=== PATIENT | male | born 1980 | race Caucasian/White ===

== ENCOUNTER 2017-02-22 07:04 | Day surgery (SDC) | payer BC ==
[~2017-02-22 07:04] MED LIST: Dexamethasone 4 MG/ML 5 ML MDV ONE; Lactated Ringers 1,000 ML IV SCH; Lidocaine 1%/Sod Bicarbonate in NS 8.4% 1 ML Syringe IV PRN; Midazolam 1 MG/ML 2 ML SDV ONE; Ondansetron 4 MG/2 ML SDV ONE; Propofol 200 MG/20 ML SDV ONE; Rocuronium 50 MG/5 ML Vial ONE; Sodium Chloride 0.9% 10 ML ONE; Sodium Chloride 0.9% 10 ML Syringe FLUSH PRN; ceFAZolin 1 GM Vial ONE; fentaNYL 250 MCG/5 ML SDV ONE
[2017-02-22] MEDS ORDERED: Sodium Chloride 0.9% 50 ML SDV ONE ×2 (07:23→08:47)
[2017-02-22] MEDS ORDERED: Lidocaine 1% with EPINEPHrine 1:100,000 20 ML MDV ONE (07:23)
[2017-02-22] MEDS ORDERED: Iopamidol 612 MG/ML 50 ML SDV ONE (07:23)
[2017-02-22] MEDS ORDERED: Bupivacaine 0.5%/EPINEPHrine 1:200,000 50 ML MDV ONE (07:23)
--- NOTE | 2017-02-22 07:24 | PCM.PREANE ---
Preanesthetic Assessment - Anesthesia/Transfusion/Family Hx Anesthesia History: Prior Anesthesia Without Reaction Type of Anesthesia Reaction: Unknown Family History of Anesthesia Reaction: No Transfusion History: Unknown Type of Transfusion Reactions: Reports: Unknown - Review of Systems General: No Symptoms Pulmonary: No Symptoms Cardiovascular: No Symptoms, Other (increased cholesterol) Gastrointestinal: No symptoms Neurological: No Symptoms Other: 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 - Physical Assessment NPO Status Date: 02/21/17 NPO Status Time: 22:00 Pulse: 72 O2 Sat by Pulse Oximetry: 97 Respiratory Rate: 16 Blood Pressure: 117/68 Temperature: 37.0 C Height: 1.88 m Weight: 151.182 kg ASA Class: 2 Mental Status: Alert & Oriented x3 Airway Class: Mallampati = 1 Dentition: Reports: Normal Dentition Thyro-Mental Finger Breadths: 3 Mouth Opening Finger Breadths: 3 ROM/Head Extension: Full Lungs: Clear to auscultation, Normal respiratory effort Cardiovascular: Regular Rate, Regular Rhythm - Allergies Allergies/Adverse Reactions: Allergies Allergy/AdvReac Type Severity Reaction Status Date / Time No Known Allergies Allergy Verified 02/21/17 12:37 - Blood Blood Available: No Product(s) Available: None - Anesthesia Plan Pre-Op Medication Ordered: None - Acknowledgements Anesthesia Type Planned: General Anesthesia Pt an Appropriate Candidate for the Planned Anesthesia: Yes Alternatives and Risks of Anesthesia Discussed w Pt/Guardian: Yes Pt/Guardian Understands and Agrees with Anesthesia Plan: Yes PreAnesthesia Questionnaire HEENT History: 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 Cardiovascular History: Reports: High cholesterol Respiratory History: 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 Gastrointestinal History: Reports: Cholelithiasis, Other (see below) Other Gastrointestinal History: Elevated liver function tests, enlarged liver, gall stones, transaminitis Genitourinary History: 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 History: 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 Musculoskeletal History: Reports: Gout Neurological History: 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 Psychiatric History: 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 Endocrine/Metabolic History: 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 Hematologic History: 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 Immunologic History: 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 Oncologic (Cancer) History: 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 Dermatologic History: 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 - Past Surgical History Head Surgeries/Procedures: 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 HEENT Surgical History: 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 Cardiovascular Surgical History: 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 Respiratory Surgical History: 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 GI Surgical History: 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 Male Surgical History: 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 Endocrine Surgical History: 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 Neurological Surgical History: 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 Musculoskeletal Surgical History: Reports: Other (see below) Other Musculoskeletal Surgeries/Procedures:: Left 5th digit tendon repair, Right knee scope x2 Oncologic Surgical History: 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 Dermatological Surgical History: 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 - SUBSTANCE USE Smoking Status *Q: Former Smoker Second Hand Smoke Exposure: Yes Recreational Drug Use History: No - HOME MEDS Home Medications: Home Meds Multivitamin [Multivitamins] 1 tab PO DAILY 02/08/17 [History] - CURRENT (IN HOUSE) MEDS Current Meds: Current Medications Lactated Ringer's (Ringers, Lactated) 1,000 mls @ 125 mls/hr IV ASDIRECTED AJ Lidocaine/Sodium Bicarbonate (Buffered Lidocaine 1% In Ns 8.4%) 0.25 ml IV ONETIME PRN PRN Reason: Prior to IV Start Sodium Chloride (Saline Flush) 10 ml FLUSH ASDIRECTED PRN PRN Reason: Keep Vein Open Discontinued Medications Cefazolin Sodium (Ancef) Confirm Administered Dose 3 gm .ROUTE .STK-MED ONE Stop: 02/22/17 07:01 Dexamethasone (Dexamethasone) Confirm Administered Dose 20 mg .ROUTE .STK-MED ONE Stop: 02/22/17 07:01 Fentanyl (Sublimaze) Confirm Administered Dose 250 mcg .ROUTE .STK-MED ONE Stop: 02/22/17 07:01 Lactated Ringer's (Ringers, Lactated) 1,000 mls @ 125 mls/hr IV ASDIRECTED AJ Sodium Chloride (Normal Saline) Confirm Administered Dose 10 mls @ as directed .ROUTE .STK-MED ONE Stop: 02/22/17 07:01 Lidocaine/Sodium Bicarbonate (Buffered Lidocaine 1% In Ns 8.4%) 0.25 ml IV ONETIME PRN PRN Reason: Prior to IV Start Midazolam HCl (Versed 1 Mg/Ml) Confirm Administered Dose 2 mg .ROUTE .STK-MED ONE Stop: 02/22/17 07:01 Ondansetron HCl (Zofran) Confirm Administered Dose 4 mg .ROUTE .STK-MED ONE Stop: 02/22/17 07:01 Propofol (Diprivan 20 Ml) Confirm Administered Dose 200 mg .ROUTE .STK-MED ONE Stop: 02/22/17 07:01 Rocuronium Neola (Zemuron) Confirm Administered Dose 50 mg .ROUTE .STK-MED ONE Stop: 04/27/17 07:01 Sodium Chloride (Saline Flush) 10 ml FLUSH ASDIRECTED PRN PRN Reason: Keep Vein Open
[2017-02-22] MEDS ORDERED: Metoclopramide 10 MG/2 ML SDV IVPUSH PRN (07:33)
[2017-02-22] MEDS ORDERED: HYDROmorphone 0.5 MG/0.5 ML Syringe IVPUSH PRN (07:33)
[2017-02-22] MEDS ORDERED: Ondansetron 4 MG/2 ML SDV IVPUSH PRN (07:33)
--- NOTE | 2017-02-22 07:48 | PCM.CONS ---
H&P History of Present Illness - General Date of Service: 02/22/17 - History of Present Illness Initial Comments - Free Text/Narative: Patient is a 37-year-old man who presents today for laparoscopic cholecystectomy with interoperative cholangiogram. He has a history of gallstones with elevated liver enzymes. He has had no changes in his health since he was last seen in clinic. He is having intermittent twinges of upper abdominal pain. - Related Data Allergies/Adverse Reactions: Allergies Allergy/AdvReac Type Severity Reaction Status Date / Time No Known Allergies Allergy Verified 02/21/17 12:37 Home Medications: Home Meds Multivitamin [Multivitamins] 1 tab PO DAILY 02/08/17 [History] Past Medical History HEENT History: 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 Cardiovascular History: Reports: High cholesterol Respiratory History: 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 Gastrointestinal History: Reports: Cholelithiasis, Other (see below) Other Gastrointestinal History: Elevated liver function tests, enlarged liver, gall stones, transaminitis Genitourinary History: 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: 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 Musculoskeletal History: Reports: Gout Neurological History: 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 Psychiatric History: 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 Endocrine/Metabolic History: 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 Hematologic History: 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 Immunologic History: 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 Oncologic (Cancer) History: 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 Dermatologic History: 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 - Past Surgical History Head Surgeries/Procedures: 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 HEENT Surgical History: 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 Cardiovascular Surgical History: 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 Respiratory Surgical History: 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 GI Surgical History: 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 Male Surgical History: 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 Endocrine Surgical History: 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 Neurological Surgical History: 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 Musculoskeletal Surgical History: Reports: Other (see below) Other Musculoskeletal Surgeries/Procedures:: Left 5th digit tendon repair, Right knee scope x2 Oncologic Surgical History: 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 Dermatological Surgical History: 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 Social & Family History - Tobacco Use Smoking Status *Q: Former Smoker Used Tobacco, but Quit: Yes Month Tobacco Last Used: 05/13 Second Hand Smoke Exposure: Yes - Caffeine Use Caffeine Use: 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 - Recreational Drug Use Recreational Drug Use: No Drug Use in Last 12 Months: No H&P Review of Systems - Review of Systems: Review Of Systems: ROS reveals no pertinent complaints other than HPI. Exam - Exam Exam: See Below - Vital Signs Vital Signs: Last Vital Signs Temp 98.6 F 02/22/17 07:30 Pulse 72 02/22/17 07:30 Resp 16 02/22/17 07:30 BP 117/68 02/22/17 07:30 Pulse Ox 97 02/22/17 07:30 Weight: 333 lb 4.8 oz - Exam General: alert, oriented, cooperative Lungs: Clear to auscultation, Normal respiratory effort Cardiovascular: regular rate, regular rhythm Abdomen: soft. No: peritoneal signs, distention Extremities: No: cyanosis Skin: warm, dry, intact Neurological: cranial nerves intact Neuro Extensive - Mental Status: alert, oriented x3, normal mood/affect, normal cognition Consult PN Assessment/Plan Procedures: Procedures KNEE ARTHROSCOPY/SURGERY (12/22/14) MR-STAPH DNA AMP PROBE (12/08/14) SURGICAL PATH GROSS (12/22/14) (1) Gallstones SNOMED Code(s): 528352787 Code(s): K80.20 - CALCULUS OF GALLBLADDER W/O CHOLECYSTITIS W/O OBSTRUCTION Current Visit: Yes (2) Elevated liver enzymes SNOMED Code(s): 580006533, 487727248 Code(s): R74.8 - ABNORMAL LEVELS OF OTHER SERUM ENZYMES Current Visit: Yes Problem List Initiated/Reviewed/Updated: Yes My Orders last 24 hours: My Active Orders 02/22/17 07:30 Cholangiogram In OR [CR] Routine Plan: 37-year-old male with cholelithiasis and history of elevated liver enzymes We will proceed with laparoscopic cholecystectomy with interoperative cholangiogram as planned. The patient and his had no concerns or questions.
[2017-02-22] MEDS ORDERED: Propofol 200 MG/20 ML SDV ONE (08:20)
[2017-02-22] MEDS ORDERED: HYDROmorphone 1 MG/ML Syringe ONE (08:40)
[2017-02-22] MEDS: fentaNYL 100 MCG/2 ML SDV IVPUSH PRN ×2 (09:36→10:27)
--- NOTE | 2017-02-22 09:36 | PCM.POSTAN ---
POST ANESTHESIA ASSESSMENT - MENTAL STATUS Mental Status: alert, oriented - VITAL SIGNS Pulse Rate: 84 SaO2: 100 Resp Rate: 16 Blood Pressure: 151/93 Temperature: 36.2 C - RESPIRATORY Respiratory Status: respiratory rate WNL, airway patent, O2 saturation stable, supplemental oxygen - CARDIOVASCULAR CV Status: pulse rate WNL, blood pressure stable - GASTROINTESTINAL GI Status: no symptoms - PAIN Pain Score: 6 (pain meds given per nurse) - POST OP HYDRATION Hydration Status: adequate & stable
--- NOTE | 2017-02-22 10:00 | PCM.OPNOTE ---
- General Post-Op/Procedure Note Date of Surgery/Procedure: 02/22/17 Operative Procedure(s): Laparoscopic cholecystectomy with attempted interoperative cholangiogram, fluoroscopic guidance and interpretation, incidental primary epigastric hernia repair Pre Op Diagnosis: Symptomatic cholelithiasis, history of transaminitis Post-Op Diagnosis: Chronic cholecystitis, cholelithiasis, history of transaminitis, fatty liver, small epigastric hernia Anesthesia Technique: General ET tube, Local Primary Surgeon: Nimo Pratt Anesthesia Provider: Dahlia Alvarez Pathology: Gallbladder and contents Fluid Replacement, Intraop: 1,600 (mL crystalloid) EBL in mLs: 10 Complications: None Condition: Good Free Text/Narrative:: INDICATION FOR PROCEDURE: The patient is a 37-year-old man who was self-referred to me for evaluation for symptomatic cholelithiasis. His primary care provider is listed as FARHAT Fox. He also saw HECTOR Milton for preoperative evaluation. The patient also had a history of transaminitis, however his most recent labs showed normal liver function tests. I discussed with the patient performing a laparoscopic cholecystectomy with interoperative cholangiogram and associated risks of the procedure. The patient found these risks acceptable and agreed to proceed. DESCRIPTION OF PROCEDURE: The patient was taken to the operating room and placed in the supine position. Sequential compressive devices were placed on the bilateral lower extremities. After induction of general endotracheal anesthesia, the abdomen was prepped and draped in the usual sterile fashion. Preoperative antibiotics had been administered as per protocol. A vertical curvilinear incision was made using a scalpel. This was deepened down through the subcutaneous tissues to the anterior abdominal wall fascia which was elevated. There was a small epigastric hernia present, and this was utilized to place a bariatric 12 mm trocar. The patient's abdominal wall was too thick to easily place a Shine cannula. The abdomen was insufflated to 15 mm of mercury. The abdomen was then surveyed. The patient had a large amount of intra-abdominal fat. The visualized portions of the colon and small bowel were unremarkable. The liver did show some fatty change. Attention was turned then to the patient's gallbladder which was scarred to surrounding fatty tissue and white in coloration. 3 additional bariatric 5 mm trocars were then placed under direct visualization after first injecting local anesthetic, one in the epigastrium and 2 in the right subcostal margin. The gallbladder fundus was elevated, and the triangle of Calot was dissected. The adhesions were taken down using hook electrocautery. The critical view of safety was obtained. A Webber cholangio-clamp was placed and several attempts were made to perform a cholangiogram, however they were unsuccessful despite repositioning the Webber clamp. There appeared to be saline extravasation from around the infundibulum. The cystic duct was quite small was easily visualized as was the cystic artery. Given that the patient had only had mild transient transaminitis, I elected to abandon further attempts at cholangiography. The Webber clamp was removed. The cystic duct and the cystic artery were triply clipped and transected using Endo Shayla. The gallbladder was then taken off the liver bed using hook electrocautery. The gallbladder was placed into an EndoCatch bag. The abdomen was irrigated and suctioned until the effluent was clear. The liver bed was reinspected for hemostasis. The 5 mm trocars were removed with no evidence of bleeding. The 12 mm supraumbilical trocar and gallbladder within the EndoCatch bag were then removed. The patient's epigastric defect, the site of the 12 mm trocar placement, was closed using an 0 Vicryl [id number]-ra-sveix suture. Additional local anesthetic was injected abhilash-incisionally. The incisions were then closed using subcuticular 4-0 Monocryl suture. Dermabond was placed over the patient's skin incisions. The patient was then awakened from anesthesia, extubated, and transferred to the recovery room in stable condition having tolerated the procedure well. Sponge and instrument counts were reported as correct at the end of the case. POSTOPERATIVE PLAN: The patient will be discharged home today. Prescriptions for Percocet 5/325mg were given in addition to Zofran ODT and Senna-S. They will follow up in 2 weeks for a post-operative check. They are not lift over 20 pounds for the next 4 weeks. They are to call the office with any questions or concerns. I discussed my intraoperative findings and discharge instructions with the patient 's .
[2017-02-22] MEDS ORDERED: HYDROmorphone 0.5 MG/0.5 ML Syringe ONE (10:21)
--- NOTE | 2017-02-22 11:13 | CR ---
Operative cholangiogram Two fluoroscopic spot views were obtained during operative cholangiogram exam. There is contrast extravasation being seen within the gallbladder bed. I do not see any significant opacification of the intrahepatic or extrahepatic biliary ducts. Fluoroscopy time given as 27.4 seconds. Impression: 1. Findings as noted above. Diagnostic code #2
[2017-02-22 11:16] VITALS: BP 126/61
[2017-02-22] MEDS ORDERED: Acetaminophen/oxyCODONE 325-5 MG Tab PO ONE (11:35)
== END 2017-02-22 12:00 | disposition home or self-care (01) ==
LOC: JD.SDS 07:04
PROVIDERS: ATTEND Surgery
PROC: 0FT44ZZ Resection of Gallbladder, Percutaneous Endoscopic Approach (ICD-10-PCS; principal; 2017-02-22)
PROC: BF12YZZ Fluoroscopy of Gallbladder using Other Contrast (ICD-10-PCS; 2017-02-22)
DX: K80.10 Calculus of gallbladder with chronic cholecystitis without obstruction (principal); K43.9 Ventral hernia without obstruction or gangrene; K76.0 Fatty (change of) liver, not elsewhere classified; M10.9 Gout, unspecified; Z87.891 Personal history of nicotine dependence; Z79.899 Other long term (current) drug therapy; Z98.890 Other specified postprocedural states
CPT/HCPCS: 47563; 74300; 88304; J0690; J1100; J1170; J2250; J2405; J3010; J7120; Q9967; 00790; J2704

== ENCOUNTER 2017-10-12 11:07 | Emergency (ER) | payer BC ==
--- NOTE | 2017-10-12 11:24 | EDM.PDOC ---
ED HPI GENERAL MEDICAL PROBLEM - General Chief Complaint: Abdominal Pain Stated Complaint: ABDOMINAL PAIN Time Seen by Provider: 10/12/17 11:24 Source of Information: Reports: Patient History Limitations: Reports: No Limitations - History of Present Illness INITIAL COMMENTS - FREE TEXT/NARRATIVE: 37 year old male presents for evaluation and treatment of abdominal pain. Patient reports the symptoms started suddenly this morning around 5:30. States at that time he was feeding his son. Reports the pain started in the umbilical area but is now present under his right rib cage. Reports the pain is constant and rates it at a 4 or 5 out of 10. He then gets sharp episodes which he rates as a 6 or 7/10. Reports associated symptoms of nausea and a decreased appetite. No vomiting, fevers, dysuria, hematuria, melena or hematochezia. Reports he had 2 episodes of diarrhea earlier. States he felt under the weather Sunday and Sunday with what he though was the stomach flu. Previous surgeries to the abdomen include a cholecystectomy. Onset: Today Duration: Hour(s): (6), Constant Location: Reports: Abdomen Quality: Reports: Dull, Sharp Improves with: Reports: Immobilization Worsens with: Reports: Movement Associated Symptoms: Reports: Loss of Appetite Middle Abdominal Pain Score (Numeric/FACES): 5 - Related Data Allergies Allergy/AdvReac Type Severity Reaction Status Date / Time No Known Allergies Allergy Verified 10/12/17 11:16 Home Meds: Home Meds . 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 Musculoskeletal History: Reports: Gout Neurological History: 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 Psychiatric History: 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 Endocrine/Metabolic History: 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 Hematologic History: 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 Immunologic History: 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 Oncologic (Cancer) History: 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 Dermatologic History: 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 - Past Surgical History Head Surgeries/Procedures: 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 HEENT Surgical History: 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 Respiratory Surgical History: 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 Male Surgical History: 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 Endocrine Surgical History: 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 Neurological Surgical History: 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 Musculoskeletal Surgical History: Reports: Other (See Below) Oncologic Surgical History: 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 Dermatological Surgical History: 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 Social & Family History - Tobacco Use Smoking Status *Q: Never Smoker Used Tobacco, but Quit: Yes Month Tobacco Last Used: 05/13 Second Hand Smoke Exposure: Yes - Caffeine Use Caffeine Use: 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 - Recreational Drug Use Recreational Drug Use: No Drug Use in Last 12 Months: No ED ROS GENERAL - Review of Systems Review Of Systems: See Below Constitutional: Reports: Decreased Appetite. Denies: Fever GI/Abdominal: Reports: Abdominal Pain (right side), Diarrhea (x2), Nausea. Denies: Hematochezia, Melena, Vomiting : Denies: Dysuria, Hematuria ED EXAM, GI/ABD - Physical Exam Exam: See Below Exam Limited By: No Limitations General Appearance: Alert, WD/WN, No Apparent Distress, Obese Respiratory/Chest: No Respiratory Distress, Lungs Clear, Normal Breath Sounds Cardiovascular: Normal Peripheral Pulses, Regular Rate, Rhythm, No Murmur GI/Abdominal Exam: Guarding, Tender, Other (decreased bowel sounds; + mcburnie point tenderness, pain with psosas and obturator signs). No: Rigid, Rebound Neurological: Alert, Oriented, Normal Cognition Psychiatric: Normal Affect, Normal Mood Skin Exam: Warm, Dry, Normal Color Course - Vital Signs Last Recorded V/S: Last Vital Signs Temp 36.6 C 10/12/17 11:14 Pulse 72 10/12/17 11:14 Resp 16 10/12/17 11:14 BP Pulse Ox 98 10/12/17 11:14 - Orders/Labs/Meds Orders: Active Orders 24 hr Category Date Time Status Peripheral IV Care [RC] . DIRECTED Care 10/12/17 11:32 Active Peripheral IV Insertion Adult [OM.PC] Routine Oth 10/12/17 11:31 Ordered Labs: Laboratory Tests 10/12/17 10/12/17 10/12/17 Range/Units 11:45 11:45 11:45 WBC 7.66 (4.23-9.07) K/mm3 RBC 5.13 (4.63-6.08) M/mm3 Hgb 14.8 (13.7-17.5) gm/L Hct 45.2 (40.1-51.0) % MCV 88.1 (79.0-92.2) fl MCH 28.8 (25.7-32.2) pg MCHC 32.7 (32.2-35.5) g/dl RDW Std Deviation 44.3 H (35.1-43.9) fL Plt Count 296 (163-337) K/mm3 MPV 9.8 (9.4-12.3) fl Neutrophils % (Manual) 58 (40-60) % Band Neutrophils % 0 (0-10) % Lymphocytes % (Manual) 33 (20-40) % Atypical Lymphs % 0 % Monocytes % (Manual) 4 (2-10) % Eosinophils % (Manual) 5 (0.8-7.0) % Basophils % (Manual) 0 L (0.2-1.2) Platelet Estimate Adequate RBC Morph Comment Normal Sodium 140 (136-145) mEq/L Potassium 4.1 (3.5-5.1) mEq/L Chloride 105 (98-107) mEq/L Carbon Dioxide 25 (21-32) mEq/L Anion Gap 14.1 (5-15) BUN 12 (7-18) mg/dL Creatinine 0.9 (0.7-1.3) mg/dL Est Cr Clr Drug Dosing 130.66 mL/min Estimated GFR (MDRD) > 60 (>60) mL/min BUN/Creatinine Ratio 13.3 L (14-18) Glucose 103 (74-106) mg/dL Calcium 9.4 (8.5-10.1) mg/dL Total Bilirubin 0.3 (0.2-1.0) mg/dL AST 33 (15-37) U/L ALT 78 H (16-63) U/L Alkaline Phosphatase 35 L (46-116) U/L C-Reactive Protein 0.6 (<1.0) mg/dL Total Protein 7.8 (6.4-8.2) g/dl Albumin 3.7 (3.4-5.0) g/dl Globulin 4.1 gm/dL Albumin/Globulin Ratio 0.9 L (1-2) Lipase 87 (73-393) U/L Urine Color Yellow (Yellow) Urine Appearance Clear (Clear) Urine pH 6.0 (5.0-8.0) Ur Specific [place] > or = 1.030 (1.005-1.030) Urine Protein 2+ H (Negative) Urine Glucose (UA) Negative (Negative) Urine Ketones Negative (Negative) Urine Occult Blood Trace-lysed H (Negative) Urine Nitrite Negative (Negative) Urine Bilirubin Negative (Negative) Urine Urobilinogen 0.2 (0.2-1.0) Ur Leukocyte Esterase Negative (Negative) Urine RBC 0-5 (0-5) /hpf Urine WBC 0-5 (0-5) /hpf Ur Epithelial Cells 0-5 (0-5) /hpf Urine Bacteria Not seen (FEW) /hpf Urine Mucus Not seen (FEW) /hpf Meds: Medications Discontinued Medications Generic Name Dose Route Start Last Admin Trade Name Freq PRN Reason Stop Dose Admin Diatrizoate Meglum/Diatrizoate Sod 90 ml 10/12/17 12:23 10/12/17 13:17 Gastrografin 37% PO 10/12/17 12:24 90 ml ONETIME ONE Administration Sodium Chloride 1,000 mls @ 999 mls/hr 10/12/17 11:31 10/12/17 11:45 Normal Saline IV 10/12/17 12:31 999 mls/hr ONETIME ONE Administration Iopamidol 150 ml 10/12/17 12:23 10/12/17 13:17 Isovue-300 (61%) IVPUSH 10/12/17 12:24 125 ml ONETIME ONE Administration Sodium Chloride 10 ml 10/12/17 11:31 10/12/17 11:46 Saline Flush FLUSH 10 ml ASDIRECTED PRN Administration Keep Vein Open Sodium Chloride 10 ml 10/12/17 12:23 10/12/17 13:17 Saline Flush FLUSH 10 ml ONETIME PRN Administration IV FLUSH - Radiology Interpretation Free Text/Narrative:: CT abdomen and pelvis Technique: Multiple axial sections were obtained from above the dome of the diaphragm inferiorly through the pubic symphysis. Intravenous and oral contrast was utilized. Delayed images were also obtained through the bladder. Comparison: No prior abdominal CT exam. Findings: Visualized lung bases shows nothing acute. Liver shows fatty infiltration without focal abnormality. Spleen appears within normal limits. Adrenal glands show no nodule. Pancreas is within normal limits. Kidneys show symmetric contrast enhancement without hydronephrosis or mass. No retroperitoneal adenopathy or mesenteric abnormalities are seen. No pelvic mass or adenopathy is seen. Appendix is visualized which appears normal. No free fluid or inflammatory change is seen. Fat-containing umbilical hernia is noted. Delayed images shows contrast within the distal ureters and bladder. Bone window settings were reviewed which shows mild scattered degenerative change. Impression: 1. Fatty infiltration within the liver. Other incidental findings. 2. Nothing acute is seen on CT study of the abdomen and pelvis. - Re-Assessments/Exams Free Text/Narrative Re-Assessment/Exam: 10/12/17 15:00 reviewed the lab and imaging results the patient. Paige to be either constipation or possibly viral gastroenteritis. He reported 2 episodes of diarrhea earlier. Of note we are currently seeing a high amount of viral gastroenteritis causing significant abdominal pain, diarrhea and vomiting. High suspicion for constipation. Will discharge home at this time. Discharge instructions as documented. Departure - Departure Time of Disposition: 15:02 Disposition: Home, Self-Care 01 Condition: Fair Clinical Impression: Abdominal pain - Discharge Information Instructions: Abdominal Pain, Adult, [id number] Referrals: PCP,Jaida [Primary Care Provider] - Kina Llanos [Physician] - Forms: ED Department Discharge Additional Instructions: the contrast you drank in the ER today will likely cause you to have a large bowel movement. If you do not have a large bowel movement from the contrast recommend starting [id number] MiraLAX. I recommended you purchase a probiotic, these are available [id number]. Rest. Make sure you are drinking plenty of fluids. If your symptoms persist into mid next week, recommend you follow-up with family medicine. He does not have a family medicine provider, recommend Dr. [facility] at the [facility]. Please call [phone] to schedule with him. Please return to the ER if your symptoms change or worsen. - My Orders Last 24 Hours: My Active Orders 10/12/17 11:31 Peripheral IV Insertion Adult [OM.PC] Routine 10/12/17 11:32 Peripheral IV Care [RC] . DIRECTED - Assessment/Plan Last 24 Hours: My Active Orders 10/12/17 11:31 Peripheral IV Insertion Adult [OM.PC] Routine 10/12/17 11:32 Peripheral IV Care [RC] . DIRECTED
[2017-10-12] MEDS ORDERED: Sodium Chloride 0.9% 10 ML Syringe FLUSH PRN ×2 (11:31→12:23)
[2017-10-12] MEDS ORDERED: Sodium Chloride 0.9% 1,000 ML IV ONE (11:31)
[2017-10-12] MEDS ORDERED: Diatrizoate Meglumine/Diatrizoate Sodium 37% 120 ML Bottle PO ONE (12:23)
[2017-10-12] MEDS ORDERED: Iopamidol 612 MG/ML 150 ML Bottle IVPUSH ONE (12:23)
--- NOTE | 2017-10-12 13:48 | CT ---
CT abdomen and pelvis Technique: Multiple axial sections were obtained from above the dome of the diaphragm inferiorly through the pubic symphysis. Intravenous and oral contrast was utilized. Delayed images were also obtained through the bladder. Comparison: No prior abdominal CT exam. Findings: Visualized lung bases shows nothing acute. Liver shows fatty infiltration without focal abnormality. Spleen appears within normal limits. Adrenal glands show no nodule. Pancreas is within normal limits. Kidneys show symmetric contrast enhancement without hydronephrosis or mass. No retroperitoneal adenopathy or mesenteric abnormalities are seen. No pelvic mass or adenopathy is seen. Appendix is visualized which appears normal. No free fluid or inflammatory change is seen. Fat-containing umbilical hernia is noted. Delayed images shows contrast within the distal ureters and bladder. Bone window settings were reviewed which shows mild scattered degenerative change. Impression: 1. Fatty infiltration within the liver. Other incidental findings. 2. Nothing acute is seen on CT study of the abdomen and pelvis. Diagnostic code #2
== END 2017-10-12 15:17 | disposition home or self-care (01) ==
LOC: JD.ED 11:07
DX: R10.9 Unspecified abdominal pain (principal); K76.0 Fatty (change of) liver, not elsewhere classified; E78.00 Pure hypercholesterolemia, unspecified
CPT/HCPCS: 36415; 74177; 80053; 81001; 83690; 85025; 86140; 96360; 99284; J7040; J7050; Q9963; Q9967

== ENCOUNTER 2017-11-07 09:29 | Day surgery (SDC) | payer BC ==
[~2017-11-07 09:29] MED LIST changes: -Dexamethasone 4 MG/ML 5 ML MDV ONE; +Dexamethasone 4 MG/ML SDV ONE; +Ketorolac 30 MG/ML SDV ONE; +Lidocaine 1% 4 ML ONE; -Lidocaine 1%/Sod Bicarbonate in NS 8.4% 1 ML Syringe IV PRN; +Lidocaine 1%/Sod Bicarbonate in NS 8.4% 1 ML Syringe PRN; -Sodium Chloride 0.9% 10 ML ONE; -ceFAZolin 1 GM Vial ONE
--- NOTE | 2017-11-07 10:09 | PCM.PREANE ---
Preanesthetic Assessment - Procedure Proposed Procedure: Open umbilical hernia repair with mesh - Anesthesia/Transfusion/Family Hx Anesthesia History: Prior Anesthesia Without Reaction Family History of Anesthesia Reaction: No Transfusion History: No Prior Transfusion(s) Type of Transfusion Reactions: Reports: Unknown - Review of Systems General: No Symptoms Pulmonary: No Symptoms Cardiovascular: No Symptoms Gastrointestinal: No Symptoms Neurological: No Symptoms Other: 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 - Physical Assessment NPO Status Date: 11/06/17 NPO Status Time: 23:00 Pulse: 85 O2 Sat by Pulse Oximetry: 94 Respiratory Rate: 16 Blood Pressure: 142/90 Temperature: 36.7 C Height: 1.85 m Weight: 160 kg ASA Class: 2 Mental Status: Alert & Oriented x3 Airway Class: Mallampati = 1 Dentition: Reports: Normal Dentition Thyro-Mental Finger Breadths: 3 Mouth Opening Finger Breadths: 3 ROM/Head Extension: Full Lungs: Clear to Auscultation, Normal Respiratory Effort Cardiovascular: Regular Rate, Regular Rhythm - Allergies Allergies/Adverse Reactions: Allergies Allergy/AdvReac Type Severity Reaction Status Date / Time No Known Allergies Allergy Verified 11/06/17 12:09 - Blood Blood Available: No Product(s) Available: None - Anesthesia Plan Pre-Op Medication Ordered: None - Acknowledgements Anesthesia Type Planned: General Anesthesia Pt an Appropriate Candidate for the Planned Anesthesia: Yes Alternatives and Risks of Anesthesia Discussed w Pt/Guardian: Yes Pt/Guardian Understands and Agrees with Anesthesia Plan: Yes PreAnesthesia Questionnaire HEENT History: 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 Cardiovascular History: Reports: High Cholesterol Respiratory History: 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 Gastrointestinal History: Reports: Cholelithiasis, Other (See Below) Other Gastrointestinal History: Elevated liver function tests, enlarged liver, gall stones, transaminitis Genitourinary History: 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 [employer] History: 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 Musculoskeletal History: Reports: Gout Neurological History: 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 Psychiatric History: 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 Endocrine/Metabolic History: 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 Hematologic History: 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 Immunologic History: 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 Oncologic (Cancer) History: 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 Dermatologic History: 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 - Past Surgical History Head Surgeries/Procedures: 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 HEENT Surgical History: 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 Cardiovascular Surgical History: 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 Respiratory Surgical History: 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 GI Surgical History: 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, Cholecystectomy Female Surgical History: 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 Male Surgical History: 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 Endocrine Surgical History: 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 Neurological Surgical History: 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 Musculoskeletal Surgical History: Reports: Other (See Below) Other Musculoskeletal Surgeries/Procedures:: Left 5th digit tendon repair, Right knee scope x2 Oncologic Surgical History: 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 Dermatological Surgical History: 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 - SUBSTANCE USE Smoking Status *Q: Never Smoker Second Hand Smoke Exposure: Yes Recreational Drug Use History: No - HOME MEDS Home Medications: Home Meds Allopurinol [Zyloprim] 100 mg PO DAILY 11/06/17 [History] Phentermine HCl 30 mg PO DAILY 11/06/17 [History] - CURRENT (IN HOUSE) MEDS Current Meds: Current Medications Lactated Ringer's (Ringers, Lactated) 1,000 mls @ 125 mls/hr IV ASDIRECTED JA Stop: 11/07/17 23:00 Lidocaine/Sodium Bicarbonate (Buffered Lidocaine 1% In Ns 8.4%) 0.25 ml .XX ONETIME PRN PRN Reason: Prior to IV Start Stop: 11/07/17 18:00 Sodium Chloride (Saline Flush) 10 ml FLUSH ASDIRECTED PRN PRN Reason: Keep Vein Open Stop: 11/07/17 18:00 Discontinued Medications Bupivacaine HCl/Epinephrine Bitart (Marcaine 0.5%/Epinephrine 1:200,000) Confirm Administered Dose 50 ml .ROUTE .STK-MED ONE Stop: 11/07/17 09:25 Dexamethasone (Dexamethasone) Confirm Administered Dose 4 mg .ROUTE .STK-MED ONE Stop: 11/07/17 09:11 Fentanyl (Sublimaze) Confirm Administered Dose 250 mcg .ROUTE .STK-MED ONE Stop: 11/07/17 09:07 Lidocaine HCl (Xylocaine-Mpf 1%) Confirm Administered Dose 4 mls @ as directed .ROUTE .STK-MED ONE Stop: 11/07/17 09:11 Ketorolac Tromethamine (Toradol) Confirm Administered Dose 30 mg .ROUTE .STK- MED ONE Stop: 11/07/17 09:11 Lidocaine/Epinephrine (Xylocaine 1% With Epinephrine 1:100,000) Confirm Administered Dose 20 ml .ROUTE .STK-MED ONE Stop: 11/07/17 09:25 Midazolam HCl (Versed 1 Mg/Ml) Confirm Administered Dose 2 mg .ROUTE .STK-MED ONE Stop: 11/07/17 09:07 Ondansetron HCl (Zofran) Confirm Administered Dose 4 mg .ROUTE .STK-MED ONE Stop: 11/07/17 09:11 Propofol (Diprivan 20 Ml) Confirm Administered Dose 200 mg .ROUTE .STK-MED ONE Stop: 11/07/17 09:07 Rocuronium [place] (Zemuron) Confirm Administered Dose 50 mg .ROUTE .STK-MED ONE Stop: 11/07/17 09:11
[2017-11-07] MEDS ORDERED: Lidocaine 1% with EPINEPHrine 1:100,000 20 ML MDV ONE (11:10)
[2017-11-07] MEDS ORDERED: Bupivacaine 0.5%/EPINEPHrine 1:200,000 50 ML MDV ONE (11:10)
[2017-11-07] MEDS ORDERED: ceFAZolin 1 GM Vial ONE (11:12)
[2017-11-07] MEDS: Bupivacaine 0.5%/EPINEPHrine 1:200,000 50 ML MDV ONE ×2 (11:27→11:35)
[2017-11-07] MEDS: Lidocaine 1% with EPINEPHrine 1:100,000 20 ML MDV ONE ×2 (11:27→11:35)
[2017-11-07] MEDS ORDERED: Propofol 200 MG/20 ML SDV ONE (11:29)
[2017-11-07] MEDS ORDERED: Neostigmine Methylsulfate 1 MG/ML 5 ML Syringe ONE (12:18)
--- NOTE | 2017-11-07 12:21 | PCM.OPNOTE ---
- General Post-Op/Procedure Note Date of Surgery/Procedure: 11/07/17 Operative Procedure(s): Open incisional port sites at the umbilical hernia repair with mesh Findings: Chronic scarring with a [place] nonreducible hernia Pre Op Diagnosis: Symptomatic incisional port site hernia Post-Op Diagnosis: Same Anesthesia Technique: General LMA, Local Primary Surgeon: Jabari Garcia Pathology: None EBL in mLs: 3 Complications: None Condition: Good Free Text/Narrative:: After adequate LMA general anesthesia was obtained the patient's abdomen was prepped and draped in the usual fashion for my hernia repairs. After local analgesia was given a midline incision was made in the area of the previous laparoscopic cholecystectomy port site. This incision was deepened with Metzenbaum scissors until I ran into some scarring from the herniated sac. I the sac from the surrounding subcutaneous fat sharply and with cautery down to the fascia. The sac was slightly thickened from chronicity. The defect was about 2 cm in size. I reduced the sac then placed at 4.3 cm mass in the defect site. I then closed the fascia with 5 interrupted 0 Ethibond sutures. I irrigated out the field and obtained hemostasis with the cautery as necessary. The subcutaneous tissues were reapproximated with a 3-0 figure-of- eight Vicryl. The skin was closed with 4-0 running subcuticular Vicryl. Mastisol and Steri-Strips were used for the dressing. There were no complications.
--- NOTE | 2017-11-07 12:31 | PCM.POSTAN ---
POST ANESTHESIA ASSESSMENT - MENTAL STATUS Mental Status: Alert, Oriented - VITAL SIGNS Pulse Rate: 89 SaO2: 97 Resp Rate: 18 Blood Pressure: 133/79 Temperature: 36.9 C - RESPIRATORY Respiratory Status: Respiratory Rate WNL, Airway Patent, O2 Saturation Stable, Supplemental Oxygen - CARDIOVASCULAR CV Status: Pulse Rate WNL, Blood Pressure Stable - GASTROINTESTINAL GI Status: No Symptoms - PAIN Pain Score: 0 - POST OP HYDRATION Hydration Status: Adequate & Stable
[2017-11-07] MEDS ORDERED: diphenhydrAMINE 50 MG/ML SDV IVPUSH PRN (12:32)
[2017-11-07] MEDS ORDERED: Meperidine PF 50 MG/ML Syringe IVPUSH PRN (12:32)
[2017-11-07] MEDS ORDERED: fentaNYL 100 MCG/2 ML SDV IVPUSH PRN (12:32)
[2017-11-07] MEDS ORDERED: Ondansetron 4 MG/2 ML SDV IVPUSH PRN (12:32)
[2017-11-07] MEDS ORDERED: HYDROmorphone 0.5 MG/0.5 ML Syringe IVPUSH PRN (12:32)
[2017-11-07] MEDS ORDERED: fentaNYL 100 MCG/2 ML SDV ONE (12:33)
[2017-11-07] MEDS ORDERED: Acetaminophen/Codeine 300-30 MG Tab PO PRN (12:57)
[2017-11-07 14:07] VITALS: BP 105/54
== END 2017-11-07 14:20 | disposition home or self-care (01) ==
LOC: JD.SDS 09:29
PROVIDERS: ATTEND Surgery
DX: K42.9 Umbilical hernia without obstruction or gangrene (principal)
CPT/HCPCS: 49585; A9270; C1781; J0690; J1100; J1885; J2250; J2405; J2710; J3010; J7120; 00830; J2704

== ENCOUNTER 2024-12-04 06:45 | Day surgery (SDC) | payer BC ==
[~2024-12-04 06:45] MED LIST changes: +Chloroprocaine 3% 30 MG/ML 20 ML SDV ONE; -Dexamethasone 4 MG/ML SDV ONE; -Ketorolac 30 MG/ML SDV ONE; -Lidocaine 1% 4 ML ONE; -Lidocaine 1%/Sod Bicarbonate in NS 8.4% 1 ML Syringe PRN; -Ondansetron 4 MG/2 ML SDV ONE; -Rocuronium 50 MG/5 ML Vial ONE; +Ropivacaine 0.5% 5 MG/ML 30 ML SDV ONE; +Sodium Chloride 0.9% 10 ML Syringe FLUSH SCH; +fentaNYL 100 MCG/2 ML SDV ONE; -fentaNYL 250 MCG/5 ML SDV ONE
[2024-12-04] MEDS: Lactated Ringers 1,000 ML IV SCH (06:50)
[2024-12-04] MEDS: Acetaminophen 325 MG Tab PO ONE (07:29)
[2024-12-04] MEDS: oxyCODONE ER 10 MG TAB.ER PO ONE (07:29)
[2024-12-04] MEDS: Pregabalin 25 MG Cap PO ONE (07:30)
[2024-12-04] MEDS ORDERED: Phenylephrine 1% 10 MG/ML SDV ONE (08:02)
[2024-12-04] MEDS ORDERED: ceFAZolin 2 GM Vial ONE (08:02)
[2024-12-04] MEDS ORDERED: Dexamethasone 4 MG/ML 5 ML MDV ONE (08:02)
[2024-12-04] MEDS ORDERED: Sodium Chloride 0.9% 100 ML ONE (08:05)
[2024-12-04] MEDS ORDERED: Lactated Ringers 1,000 ML ONE (08:05)
[2024-12-04] MEDS ORDERED: Propofol 200 MG/20 ML SDV ONE ×2 (08:19→08:56)
[2024-12-04] MEDS ORDERED: Ondansetron 4 MG/2 ML SDV IVPUSH PRN (08:32)
[2024-12-04] MEDS ORDERED: HYDROmorphone 0.5 MG/0.5 ML Syringe IVPUSH PRN (08:32)
[2024-12-04] MEDS ORDERED: fentaNYL 100 MCG/2 ML SDV IVPUSH PRN (08:32)
[2024-12-04] MEDS ORDERED: dexmedeTOMIDine HCl 200 MCG/2 ML SDV ONE (08:58)
[2024-12-04] MEDS: Morphine 8 MG, EPINEPHrine 0.3 MG, Cefuroxime 750 MG, Ketorolac 30 MG, Sodium Chloride ... PRN (09:15)
[2024-12-04] MEDS: VANCOmycin 1 GM SDV ONE (09:23)
[2024-12-04] MEDS: Tranexamic Acid 1,000 MG/10 ML Vial ONE (09:23)
[2024-12-04] MEDS: Triamcinolone Acetonide 40 MG/ML 1 ML SDV ONE (09:23)
[2024-12-04] MEDS: Bupivacaine 0.25% 10 ML SDV ONE (09:37)
[2024-12-04] MEDS: oxyCODONE 5 MG Tab PO PRN (11:16)
[2024-12-04 11:53] VITALS: BP 128/68; PULSE 71
== END 2024-12-04 12:25 | disposition home or self-care (01) ==
LOC: JD.SDS 06:45
PROVIDERS: ATTEND Orthopaedic Surgery
DX: M17.0 Bilateral primary osteoarthritis of knee (principal); E78.2 Mixed hyperlipidemia; M10.9 Gout, unspecified; Z87.891 Personal history of nicotine dependence; E66.01 Morbid (severe) obesity due to excess calories; Z68.42 Body mass index [BMI] 45.0-49.9, adult
CPT/HCPCS: 73560-26-RT; 73560-RT; 97116-GP; 97161-GP; A9270-GY; J0171; J0665; J0690; J0697; J1100; J1885; J2250; J2272; J2371; J2401; J2704; J2795; J3010; J3301; J3490; J7120